=== PATIENT | male | born 1930 | race Two or more races ===

== ENCOUNTER 2020-07-13 02:30 | Emergency (ER) | payer OTHER ==
[~2020-07-13] VITALS: Ht 182.9 cm; Wt 60.0 kg
[2020-07-13 02:56] LABS: HEMATOCRIT. 33.3 % (42.0-52.0); MEAN CORPUSCULAR HEMOGLOBIN 24.3 pg (28.0-32.0); MEAN CORPUSCULAR VOLUME 73.3 fL (80.0-94.0); PLATELET 349 x1000/uL (130-400); RED BLOOD CELL COUNT 4.54 mill/uL (4.7-6.1); RED CELL DISTRIBUTION WIDTH 17.5 % (11.6-14.6)
[2020-07-13 03:01] LABS: CHLORIDE 105 mEq/L (98-107)
[2020-07-13 03:05] LABS: PLATELET ESTIMATE NORMAL
[2020-07-13 03:08] LABS: BETA HYDROXYBUTYRATE 0.6 mMol/L (0.0-0.3)
[2020-07-13 04:05] LABS: CLARITY URINE CLEAR (CLEAR); COLOR URINE YELLOW (YELLOW); KETONES URINE NEGATIVE (NEGATIVE); LEUKOCYTE ESTERASE URINE NEGATIVE (NEGATIVE); NITRITE URINE NEGATIVE (NEGATIVE); OCCULT BLOOD URINE NEGATIVE (NEGATIVE); PROTEIN URINE TRACE (NEGATIVE); SPECIFIC GRAVITY URINE 1.024 (1.005-1.030); UROBILINOGEN URINE 0.2 E.U./dL (0.2-1.0)
[2020-07-13] MEDS ORDERED: SODIUM CHLORIDE 0.9% 1,000 ML IV ONE (04:30)
[2020-07-13 06:53] VITALS: BP 146/76
== END 2020-07-13 07:04 | disposition short-term general hospital (02) ==
LOC: ER 02:30
DX: R53.1 Weakness (principal); E11.65 Type 2 diabetes mellitus with hyperglycemia; R55 Syncope and collapse; Z89.431 Acquired absence of right foot
CPT/HCPCS: 36415; 70450; 71045; 80053; 81003; 82010; 82962; 83605; 83880; 84484; 85025; 93005; 96360; 99285; J7030

== ENCOUNTER 2020-07-25 00:48 | Emergency (ER) | payer OTHER ==
[~2020-07-25] VITALS: Ht 185.4 cm; Wt 82.0 kg
[2020-07-25] MEDS ORDERED: DEXTROSE 50% WATER 50ML SYRINGE IV ONE (03:15)
[2020-07-25] MEDS ORDERED: PIPERACILLIN/TAZ 3.375G PREMIX 50 ML IV ONE (03:15)
[2020-07-25] MEDS ORDERED: VANCOMYCIN 1 G PREMIX 200 ML IV ONE (03:15)
[2020-07-25] MEDS ORDERED: ONDANSETRON HCL 4MG/2ML INJ IV ONE (03:15)
[2020-07-25 03:45] LABS: HEMATOCRIT. 36.7 % (42.0-52.0); HEMOGLOBIN. 12.1 g/dL (14.0-18.0); MEAN CORPUSCULAR HEMOGLOBIN 24.1 pg (28.0-32.0); MEAN CORPUSCULAR VOLUME 73.2 fL (80.0-94.0); MEAN PLATELET VOLUME 8.1 fl (7.4-10.4); PLATELET 428 x1000/uL (130-400); RED BLOOD CELL COUNT 5.02 mill/uL (4.7-6.1); RED CELL DISTRIBUTION WIDTH 17.6 % (11.6-14.6)
[2020-07-25 03:54] LABS: CHLORIDE 102 mEq/L (98-107)
[2020-07-25] MEDS ORDERED: DEXT 10% WATER 1,000 ML IV ONE (04:15)
[2020-07-25 06:00] VITALS: BP 150/76
[2020-07-25 07:27] LABS: PLATELET ESTIMATE SLIGHTLY INCREASED
== END 2020-07-25 06:32 | disposition short-term general hospital (02) ==
LOC: ER 00:48
DX: E11.649 Type 2 diabetes mellitus with hypoglycemia without coma (principal); A41.9 Sepsis, unspecified organism; R65.20 Severe sepsis without septic shock; G93.40 Encephalopathy, unspecified; E87.8 Other disorders of electrolyte and fluid balance, not elsewhere classified
CPT/HCPCS: 36415; 70450; 71045; 73630; 80053; 82962; 83605; 84145; 84484; 85025; 87040; 93005; 96365; 96375; 99291; J2543; J3370; J2405

== ENCOUNTER 2020-10-01 18:51 | Emergency (ER) | payer OTHER ==
[~2020-10-01] VITALS: Ht 182.9 cm; Wt 70.0 kg
[2020-10-01 22:03] LABS: BASOPHILS % 0.6 % (0.0-2.0); EOSINOPHILS % 2.4 % (0.0-5.0); HEMATOCRIT. 36.4 % (42.0-52.0); HEMOGLOBIN. 12.1 g/dL (14.0-18.0); LYMPHOCYTES % 13.7 % (20.0-50.0); MEAN CORPUSCULAR HEMOGLOBIN 24.3 pg (28.0-32.0); MEAN CORPUSCULAR VOLUME 73.1 fL (80.0-94.0); MEAN PLATELET VOLUME 8.7 fl (7.4-10.4); MONOCYTES % 9.5 % (2.0-8.0); NEUTROPHILS % 73.8 % (40.0-76.0); PLATELET 306 x1000/uL (130-400); RED BLOOD CELL COUNT 4.98 mill/uL (4.7-6.1); RED CELL DISTRIBUTION WIDTH 19.1 % (11.6-14.6)
[2020-10-01 22:05] LABS: CHLORIDE 105 mEq/L (98-107)
[2020-10-01 22:07] LABS: PROTHROMBIN TIME 10.9 sec (9.6-11.0)
[2020-10-02 03:00] VITALS: BP 161/74
== END 2020-10-02 04:03 | disposition short-term general hospital (02) ==
LOC: ER 18:51 → CANBEDREQ 10-02 09:40
DX: E11.22 Type 2 diabetes mellitus with diabetic chronic kidney disease (principal); N18.4 Chronic kidney disease, stage 4 (severe); S91.301A Unspecified open wound, right foot, initial encounter; R41.82 Altered mental status, unspecified; I10 Essential (primary) hypertension; E78.00 Pure hypercholesterolemia, unspecified; Z89.421 Acquired absence of other right toe(s); X58.XXXA Exposure to other specified factors, initial encounter; Y93.89 Activity, other specified; Y92.018 Other place in single-family (private) house as the place of occurrence of the external cause
CPT/HCPCS: 36415; 71045; 80053; 82962; 83605; 84145; 84484; 85025; 93005; 99285

== ENCOUNTER 2020-11-21 10:01 | Emergency (ER) | payer OTHER ==
[~2020-11-21] VITALS: Ht 182.9 cm; Wt 73.0 kg
[2020-11-21] MEDS ORDERED: SODIUM CHLORIDE 0.9% 500 ML IV ONE (10:15)
[2020-11-21 10:38] LABS: BG BASE EXCESS -3.2 mmol/L (-2.0-2.0); BG CARBOXYHEMOGLOBIN 0.7 % (0.5-1.5); BG DEOXYHEMOGLOBIN 3.3 % (0.0-5.0); BG HCO3 ACT 19.9 mmol/L (22.0-26.0); BG METHEMOGLOBIN 0.3 % (0.0-1.5); BG OXYGEN SATURATION 96.7 % (92.0-98.5); BG OXYHEMOGLOBIN 95.7 % (94.0-97.0); BG PO2 92.7 mmHg (75.0-100.0); BG SAMPLE SITE RIGHT RADIAL; BG TOTAL HEMOGLOBIN 11.9 g/dL (12.0-18.0); BG VENT MODE ROOM AIR
[2020-11-21 10:55] LABS: HEMATOCRIT. 34.7 % (42.0-52.0); HEMOGLOBIN. 11.3 g/dL (14.0-18.0); MEAN CORPUSCULAR VOLUME 70.4 fL (80.0-94.0); RED BLOOD CELL COUNT 4.94 mill/uL (4.7-6.1); RED CELL DISTRIBUTION WIDTH 17.6 % (11.6-14.6)
[2020-11-21 10:57] LABS: CHLORIDE 97 mEq/L (98-107)
[2020-11-21 10:59] LABS: INR 1.1; PROTHROMBIN TIME 11.8 sec (9.6-11.0)
[2020-11-21 11:11] LABS: BETA HYDROXYBUTYRATE 0.5 mMol/L (0.0-0.3)
[2020-11-21] MEDS ORDERED: INSULIN REGULAR (HUMULIN R) 300UNITS/3ML VIAL IV ONE (11:15)
[2020-11-21 11:27] LABS: PLATELET ESTIMATE INCREASED
[2020-11-21] MEDS ORDERED: VANCOMYCIN 1 G PREMIX 200 ML IV ONE (11:30)
[2020-11-21] MEDS ORDERED: PIPERACILLIN/TAZ 3.375G PREMIX 50 ML IV ONE (11:30)
[2020-11-21 12:57] LABS: CLARITY URINE CLEAR (CLEAR); COLOR URINE YELLOW (YELLOW); KETONES URINE NEGATIVE (NEGATIVE); LEUKOCYTE ESTERASE URINE NEGATIVE (NEGATIVE); NITRITE URINE NEGATIVE (NEGATIVE); OCCULT BLOOD URINE TRACE (NEGATIVE); PROTEIN URINE 1+ (NEGATIVE); SPECIFIC GRAVITY URINE 1.024 (1.005-1.030); UROBILINOGEN URINE 0.2 E.U./dL (0.2-1.0)
[2020-11-21 16:15] VITALS: BP 144/71
== END 2020-11-21 17:22 | disposition short-term general hospital (02) ==
LOC: ER 10:01 → CANBEDREQ 16:26 → ER 17:22
DX: A41.9 Sepsis, unspecified organism (principal); R65.20 Severe sepsis without septic shock; E11.65 Type 2 diabetes mellitus with hyperglycemia; E78.00 Pure hypercholesterolemia, unspecified; I10 Essential (primary) hypertension
CPT/HCPCS: 36415; 36600; 71045; 73620; 80053; 81003; 82010; 82375; 82805; 82962; 83605; 83690; 83880; 84484; 85025; 85049; 85610; 87040; 87070; 87077; 87086; 87186; 87205; 93005; 96374; 96375; 99285; J1815; J2543; J3370; J7040

== ENCOUNTER 2021-01-09 10:43 | Emergency (ER) | payer OTHER ==
[~2021-01-09] VITALS: Ht 188 cm; Wt 77.0 kg
[2021-01-09 11:43] LABS: HEMOGLOBIN. 10.5 g/dL (14.0-18.0); MEAN CORPUSCULAR HEMOGLOBIN 21.9 pg (28.0-32.0); MEAN CORPUSCULAR VOLUME 68.8 fL (80.0-94.0); MEAN PLATELET VOLUME 7.7 fl (7.4-10.4); PLATELET 483 x1000/uL (130-400); RED CELL DISTRIBUTION WIDTH 20.2 % (11.6-14.6)
[2021-01-09 11:49] LABS: CHLORIDE 109 mEq/L (98-107)
[2021-01-09 12:02] LABS: PLATELET ESTIMATE INCREASED
[2021-01-09] MEDS ORDERED: PIPERACILLIN/TAZ 3.375G PREMIX 50 ML IV ONE (12:15)
[2021-01-09] MEDS ORDERED: VANCOMYCIN 1 G PREMIX 200 ML IV ONE (12:15)
[2021-01-09 12:45] LABS: CLARITY URINE CLOUDY (CLEAR); COLOR URINE YELLOW (YELLOW); KETONES URINE NEGATIVE (NEGATIVE); LEUKOCYTE ESTERASE URINE 3+ (NEGATIVE); NITRITE URINE NEGATIVE (NEGATIVE); OCCULT BLOOD URINE 1+ (NEGATIVE); PH URINE 5.5 (4.5-8.0); PROTEIN URINE 2+ (NEGATIVE); SPECIFIC GRAVITY URINE 1.014 (1.005-1.030); UROBILINOGEN URINE 0.2 E.U./dL (0.2-1.0)
[2021-01-09 15:30] VITALS: BP 94/58
== END 2021-01-09 12:20 | disposition short-term general hospital (02) ==
LOC: ER 10:43 → EDBEDREQSVC 12:11 → EDBEDREQTM 12:11 → ER 12:20 → CANBEDREQ 22:57
DX: A41.9 Sepsis, unspecified organism (principal); R65.20 Severe sepsis without septic shock; N39.0 Urinary tract infection, site not specified; I10 Essential (primary) hypertension; E78.00 Pure hypercholesterolemia, unspecified; E11.9 Type 2 diabetes mellitus without complications
CPT/HCPCS: 36415; 70450; 71045; 80053; 81003; 83605; 84145; 84484; 85025; 87040; 87086; 93005; 96365; 96368; 99291; J2543; J3370

== ENCOUNTER 2021-02-06 10:55 | Emergency (ER) | payer OTHER ==
[~2021-02-06] VITALS: Ht 177.8 cm; Wt 80.0 kg
[2021-02-06 12:29] LABS: BASOPHILS % 0.3 % (0.0-2.0); EOSINOPHILS % 0.9 % (0.0-5.0); HEMATOCRIT. 30.1 % (42.0-52.0); HEMOGLOBIN. 10.1 g/dL (14.0-18.0); LYMPHOCYTES % 7.8 % (20.0-50.0); MEAN CORPUSCULAR HEMOGLOBIN 22.9 pg (28.0-32.0); MEAN CORPUSCULAR VOLUME 68.7 fL (80.0-94.0); MONOCYTES % 7.7 % (2.0-8.0); NEUTROPHILS % 83.3 % (40.0-76.0); PLATELET 348 x1000/uL (130-400); RED BLOOD CELL COUNT 4.39 mill/uL (4.7-6.1); RED CELL DISTRIBUTION WIDTH 20.5 % (11.6-14.6)
[2021-02-06 12:38] LABS: CHLORIDE 110 mEq/L (98-107)
[2021-02-06 12:42] LABS: PLATELET ESTIMATE NORMAL
[2021-02-06] MEDS ORDERED: SODIUM CHLORIDE 0.9% 1,000 ML IV ONE (14:15)
[2021-02-06 16:08] VITALS: BP 143/73
[2021-02-09] MEDS ORDERED: FINA5TAB11 PO (15:23)
[2021-02-09] MEDS ORDERED: TERA2CAP4 PO (15:23)
[2021-02-09] MEDS ORDERED: SIMV-43 PO (15:23)
== END 2021-02-06 16:12 | disposition home or self-care (01) ==
LOC: ER 11:12
DX: E11.649 Type 2 diabetes mellitus with hypoglycemia without coma (principal); N28.9 Disorder of kidney and ureter, unspecified; E78.00 Pure hypercholesterolemia, unspecified; I10 Essential (primary) hypertension; Z98.890 Other specified postprocedural states; Z89.511 Acquired absence of right leg below knee
CPT/HCPCS: 36415; 71045; 80053; 82962; 83735; 85025; 96360; 99284; J7030